=== PATIENT | male | born 1970 | race Caucasian/White ===

== ENCOUNTER 2017-12-08 06:32 | Day surgery (SDC) | END 2017-12-08 16:17 | disposition home or self-care (01) ==

== ENCOUNTER 2018-08-10 05:38 | Inpatient (IN) | payer OTHER ==
[2018-08-09 10:00] VITALS: BMI 37.9
[2018-08-10] VITALS (28 sets, daily range): BP systolic 102–206; BP diastolic 53–95; PULSE 75–116; RESP 16–44; Ht 176.5 cm; Wt 119.0 kg
[~2018-08-10] VITALS: Ht 176.5 cm; Wt 119.0 kg
[2018-08-10] MEDS ORDERED: CEFAZOLIN 2 GM/50 ML (PMX) 50 ML IVPB ONE (06:00)
[2018-08-10] MEDS ORDERED: DEXAMETHASONE 4 MG/ML 5 ML INJ ONE (07:00)
[2018-08-10] MEDS ORDERED: ONDANSETRON 4 MG INJ ONE (07:00)
[2018-08-10] MEDS ORDERED: CEFAZOLIN 1 GM INJ ONE (07:00)
[2018-08-10] MEDS ORDERED: DESFLURANE 15 MIN ONE (07:00)
[2018-08-10] MEDS ORDERED: IOHEXOL 300MG/ML 30 ML BTL ONE (07:08)
[2018-08-10] MEDS ORDERED: IPRATROPIUM (NEB) 0.5 MG/2.5 ML AMP HHN ONE (07:30)
[2018-08-10] MEDS ORDERED: LEVALBUTEROL (NEB) 1.25 MG/0.5 ML AMP HHN ONE (07:30)
[2018-08-10] MEDS ORDERED: LEVALBUTEROL (NEB) 1.25 MG/0.5 ML AMP ONE (07:30)
--- NOTE | 2018-08-10 07:32 | PREAC ---
Date/Time of Note Date/Time of Note DATE: 08/10/18 TIME: :31 Anesthesia Eval and Record Evaluation Time Pre-Procedure Interview DATE: 08/10/18 TIME: 07:31 Age 47 Sex male NPO: 8 hrs Preoperative diagnosis kidney stones Planned procedure ESWOL Past Medical History Past Medical History: Includes ( ) Pulm: Other (chronic, non-productive, afibrile cough on ABx with clear CXR) GI: Obesity Surgery & Anesthesia Issues Hx of difficult intubation Meds Anticoagulation: No Beta Siva within 24 hr: No Reason Beta Siva not given: Pt. not on B-Siva No Active Prescriptions or Reported Meds Current Medications Levalbuterol (Xopenex Neb) 1.25 mg ONCE ONCE HHN ; Start 08/10/18 at 07:30; Stop 08/10/18 at 07:31; Status UNV Ipratropium Datil (Atrovent 0.02% (Neb)) 0.5 mg ONCE ONCE HHN ; Start 08/10/18 at 07:30; Stop 08/10/18 at 07:31; Status UNV Meds reviewed: Yes Allergies Coded Allergies: No Known Allergy (Unverified , 08/10/18) Allergies Reviewed: Yes Labs/Studies Labs Reviewed: Reviewed by anesthesiologist test: Negative Studies: ECG, CXR ( ) Pre-procedure Exam Airway: Adequate mouth opening, Adequate thyromental dist Mallampati: Mallampati III Teeth: Normal Lung: Normal Heart: Normal ASA Physical Status ASA physical status: 2 Emergency: None Planned Anesthetic General/MAC: ETT Planned Pain Management Parenteral pain med Pre-operative Attestations Prior to commencing anesthesia and surgery, the patient was re-evaluated, there was verification of: *The patient's identity *The results of appropriate recent lab work and preoperative vital signs *The above evaluation not changing prior to induction *Anesthetic plan, risk benefits, alternative and complications discussed with patient/family; questions answered; patient/family understands, accepts and wishes to proceed. TUNDE RAMSEY MD Aug 10, 2018 07:32
[2018-08-10] MEDS ORDERED: ROCURONIUM 50 MG INJ ONE (07:52)
[2018-08-10] MEDS ORDERED: FENTAnyl 50 MCG/ML VIAL ONE (07:52)
[2018-08-10] MEDS ORDERED: MIDAZOLAM 1 MG/ML 2 ML INJ ONE (07:52)
[2018-08-10] MEDS ORDERED: LIDOCAINE 2% (SDV) 5 ML INJ ONE (07:52)
[2018-08-10] MEDS ORDERED: SUCCINYLCHOLINE CHLORIDE 100 MG/5 ML SYG IV ONE (07:52)
[2018-08-10] MEDS ORDERED: PROPOFOL 20 ML ONE (07:52)
[2018-08-10] MEDS ORDERED: METOCLOPRAMIDE 10 MG INJ ONE (07:52)
[2018-08-10] MEDS ORDERED: MEPERIDINE 25 MG INJ IV PRN (08:00)
[2018-08-10] MEDS ORDERED: LEVALBUTEROL (NEB) 1.25 MG/0.5 ML AMP HHN PRN ×2 (08:00→14:30)
[2018-08-10] MEDS ORDERED: FENTAnyl 50 MCG/ML VIAL IV PRN ×2 (08:00)
[2018-08-10] MEDS ORDERED: ONDANSETRON 4 MG INJ IV PRN ×2 (08:00→14:00)
[2018-08-10] MEDS ORDERED: HYDROmorphONE 1 MG/5 ML IV SYRINGE IV PRN ×3 (08:00)
[2018-08-10] MEDS ORDERED: KETOROLAC 30 MG INJ IV PRN (08:00)
[2018-08-10] MEDS ORDERED: DIPHENHYDRAMINE 50 MG INJ IV PRN (08:00)
[2018-08-10] MEDS ORDERED: IPRATROPIUM (NEB) 0.5 MG/2.5 ML AMP HHN PRN (08:00)
--- NOTE | 2018-08-10 10:10 | HP ---
DATE OF ADMISSION: 08/10/2018 CHIEF COMPLAINT: Left kidney stone. HISTORY OF PRESENT ILLNESS: This is a 47-year-old male with history of left-sided kidney stone. The patient has been under observation for his kidney stone. Over time, it appears that the stone has i ncreased in size. In February 2018, a CT scan revealed a 13 mm lower pole renal stone with a small 3 to 4 mm calyceal stones. In December 2017, a 1 cm stone near the left ureteropelvic junction area was identified with mild left hydronephrosis. The patient has had intermittent left-sided flank pain, wh ich is moderately bothersome to him. The patient also has history of bladder neck contracture and bladder neck elevation. In 2009, he und erwent a transurethral incision of prostate. In 11/2017, the patient underwent transurethral resecti on of bladder neck contracture with Kenalog injection. His workup has revealed a small 27 gram prost ate. In March 2018, cystoscopy revealed a small stone adhered to the mucosa of the prostate at the bladder neck, which was dislodged. However, no bladder neck contractures were seen. The patient re ports he has slow urinary stream with frequency every 2 to 3 hours and nocturia x3. The patient's chest x-ray from this morning reveals no evidence of active acute disease PAST MEDICAL HISTORY: Elevated cholesterol, kidney stones, BPH, chronic cough: The patient has had a chronic cough for the past month. He reports his cough is not productive and it is dry. PAST SURGICAL HISTORY: Transurethral incision of prostate and transurethral resection of bladder nec k contracture with Kenalog injection. FAMILY HISTORY: Father; diabetes, CVA. Mother; diabetes. SOCIAL HISTORY: The patient does not drink alcohol, does not smoke. ALLERGIES: NO KNOWN DRUG ALLERGIES. MEDICATIONS: None. However, the patient did take azithromycin about a week ago for his cough. REVIEW OF SYSTEMS: CONSTITUTIONAL: No fevers, no chills, no change in appetite, weight gain or weight loss. HEENT: No loss of hearing, no ear or sinus pain. No rhinorrhea, nosebleed or sore throat. CARDIOVASCULAR: No chest pain or shortness of breath or heart palpitations. RESPIRATORY: The patient has chronic cough as described above. No wheezing, no hemoptysis. GASTROINTESTINAL: No abdominal pain, no cramping, no nausea. No hematochezia or hematemesis. The p atient has had intermittent left-sided flank pain. MUSCULOSKELETAL: No bone pain. No change in strength or joint pain. INTEGUMENTARY: No skin rash or lesions. NEUROLOGICAL: No dizziness, no headaches, no numbness. PSYCHIATRIC: No suicidal ideation. No depression. HEMATOLOGIC/LYMPHATIC: No known bleeding problems. No easy bruising. No lymph node enlargement. PHYSICAL EXAMINATION: CONSTITUTIONAL: The patient appears to be in no acute distress. GASTROINTESTINAL: Abdomen soft, normal bowel sounds, nondistended, nontender. Hernia exam none note d. Liver and spleen normal. GENITOURINARY: Kidneys, no CVA tenderness. Scrotum no lesions, no edema, no erythema, mass, rash, o r cysts. Epididymis symmetric, normal size, normal texture, nontender. Urethral meatus normal in si ze and location. Testes descended bilaterally, nontender. EXTREMITIES: No edema. ASSESSMENT: 1. Left-sided kidney stones. Intermittent left flank pain. 2. History of bladder neck contracture status post treatment. 3. History of urinary frequency, urgency, slow urinary stream and lower urinary tract symptoms. RECOMMENDATIONS: I have spoken with the patient in detail about natural history, grading, natural hi story and biology of kidney stones. We have discussed various treatment options. Among these option s, he understands his choices include, but not limited to continued observation, treatment of stone w ith shock lithotripsy, ureteroscopy, laser lithotripsy, percutaneous nephrostolithotomy, nephrolithot alisha and pyelolithotomy. Among these options, I have recommended and patient has elected to undergo a left extracorporeal shock wave lithotripsy, left ureteroscopy, laser lithotripsy, cystoscopy, left r etrograde pyelogram, and placement of left ureteral stent. This procedure has been explained to the patient in detail. Risks and benefits have been discussed. His questions have been answered. He un derstands that risks include, but not limited to infection, bleeding, damage to adjacent structures, heart problems, lung problems, possibility of need for further surgery, DVT, PE, ME, CVA, nonresoluti on of symptoms, recurrence of symptoms, need for other treatments, need for other surgeries, bowel in jury, bladder injury, ureteral injury, vascular injury, inability to treat all the stone in one setti ng, ureteral stricture, need for prolonged stent placement, complication of his lungs due to chronic cough, need to return for further stone treatment. All the patient's questions have been answered, n o guarantees given. He also understands that since the stent will be placed, he would have to return to my office for stent removal. All of his questions have been answered, no guarantees given. The patient would like to proceed. Dictated By: ALY RODRIGUEZ MD SR/NTS Conf#: [id number] DID#: [id number] CC: ALY RODRIGUEZ MD;*EndCC*
[2018-08-10] MEDS ORDERED: RACEPINEPHRINE 2.25%(NEB) 0.5 ML AMP ONE (10:23)
[2018-08-10] MEDS ORDERED: IPRATROPIUM (NEB) 0.5 MG/2.5 ML AMP HHN STA (10:26)
--- NOTE | 2018-08-10 10:33 | PAC ---
Date/Time of Note Date/Time of Note DATE: 08/10/18 TIME: 10:33 Post-Anesthesia Notes Post-Anesthesia Note Last documented vital signs Vital Signs Date Temp Pulse Resp B/P (MAP) Pulse Ox O2 O2 Flow FiO2 Time Delivery Rate 08/10/18 89 18 97 21 07:40 08/10/18 98.3 119/82 07:33 (94) Activity: WNL Respiratory function: WNL Cardiovascular function: WNL Mental status: Baseline Pain reasonably controlled: Yes Hydration appropriate: Yes Nausea/Vomiting absent: Yes TUNDE RAMSEY MD Aug 10, 2018 10:33
[2018-08-10] MEDS ORDERED: ALBUTEROL 0.083% (NEB) 2.5 MG/3 ML AMP ONE (10:34)
--- NOTE | 2018-08-10 10:42 | PN ---
Date/Time of Note Date/Time of Note DATE: 08/10/18 TIME: 10:37 Assessment/Plan VTE Prophylaxis SCD applied (from Nsg): Yes Pharmacological prophylaxis: NA/contraindicated Pharm contraindication: bleeding Lines/Catheters IV Catheter Type (from Nrsg): Saline Lock Central line still needed: No Urinary Cath still in place: No Assessment/Plan Hospital Course Pt underwent Left Extracorporeal shock wave lithotripsy, L ureteroscopy laser lithotripsy, ureteral stent placement Post op he was extubated but has been wheezing, required O2 and bronchodilator treatment I spoke with anesthesiologist and hospitalist service. Pt to be admitted to hospitalist service for observation, treatment of bronchospasm and wheezing Assessment/Plan Post op Wheezing Bronchospasm PLAN admit for treatment of wheezing to medicine service Cipro 500 BID for post op prophylaxis Subjective 24 Hr Interval Summary Free Text/Dictation pt had had wheezing post op Exam/Review of Systems Exam Vitals Vital Signs Date Temp Pulse Resp B/P (MAP) Pulse Ox O2 O2 Flow FiO2 Time Delivery Rate 08/10/18 89 18 97 21 07:40 08/10/18 98.3 119/82 07:33 (94) Intake and Output 08/09/18 08/09/18 08/10/18 1515:00 23:00 07:00 IntakeIntake Total 0 ml BalanceBalance 0 ml Respiratory: wheezing Gastrointestinal: soft, nl liver, spleen, non-tender Extremities: normal pulses Neurological: 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 II-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 intact Medications Medication Current Medications Hydromorphone HCl (Dilaudid) 0.2 mg PACU PRN IV MILD PAIN 1-3; Start 08/10/18 at 08:00; Stop 08/10/18 at 17:00 Hydromorphone HCl (Dilaudid) 0.4 mg PACU PRN IV MOD PAIN 4-6; Start 08/10/18 at 08:00; Stop 08/10/18 at 17:00 Hydromorphone HCl (Dilaudid) 0.6 mg PACU PRN IV SEVERE PAIN 7-10; Start 08/10/18 at 08:00; Stop 08/10/18 at 17:00 Fentanyl (Sublimaze) 25 mcg PACU ORDER PRN IV MILD PAIN 1-3; Start 08/10/18 at 08:00; Stop 08/10/18 at 17:00 Fentanyl (Sublimaze) 50 mcg PACU ORDER PRN IV MOD PAIN 4-6; Start 08/10/18 at 08:00; Stop 08/10/18 at 17:00 Ketorolac Tromethamine (Toradol) 30 mg PACU ORDER PRN IV FOR PAIN AFTER IV NARCOTIC MED; Start 08/10/18 at 08:00; Stop 08/10/18 at 17:00 Ondansetron HCl (Zofran Inj) 4 mg PACU ORDER PRN IV NAUSEA/VOMITING; Start 08/10/18 at 08:00; Stop 08/10/18 at 17:00 Levalbuterol (Xopenex Neb) 1.25 mg PACU ORDER PRN HHN .WHEEZING; Start 08/10/18 at 08:00; Stop 08/10/18 at 17:00 Ipratropium [place] (Atrovent 0.02% (Neb)) 0.5 mg PACU ORDER PRN HHN .WHEEZING; Start 08/10/18 at 08:00; Stop 08/10/18 at 17:00 Meperidine HCl (Demerol) 25 mg PACU ORDER PRN IV .RIGORS; Start 08/10/18 at 08:00; Stop 08/10/18 at 17:00 Diphenhydramine HCl (Benadryl) 25 mg PACU ORDER PRN IV .PRURITUS; Start 08/10/18 at 08:00; Stop 08/10/18 at 17:00 Influenza Virus Vaccine Quadrival (Fluzone) 0.5 ml ONCE ONCE IM* ; Start 08/11/18 at 10:00; Stop 08/11/18 at 10:01 ALY RODRIGUEZ Aug 10, 2018 10:42
--- NOTE | 2018-08-10 10:44 | SIPON ---
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
[2018-08-10] MEDS ORDERED: EPINEPHrine 0.1 MG/ML SYG ONE (11:10)
[2018-08-10] MEDS ORDERED: HYDROCODONE/APAP (5/325) TAB PO PRN (14:00)
[2018-08-10] MEDS ORDERED: NACL 0.9% 3 ML SYG IV SCH (14:00)
[2018-08-10] MEDS ORDERED: ALBUTEROL/IPRATROPIUM (NEB) 3 ML AMP HHN PRN (14:00)
[2018-08-10] MEDS ORDERED: DOCUSATE SODIUM 100 MG CAP PO PRN (14:00)
[2018-08-10] MEDS ORDERED: morphine 2 MG INJ IV PRN (14:00)
--- NOTE | 2018-08-10 14:02 | HP ---
Date/Time of Note Date/Time of Note DATE: 08/10/18 TIME: 13:55 Assessment/Plan VTE Prophylaxis Risk score (from Ns)>0 risk: 4 SCD applied (from Ns): Yes Pharmacological prophylaxis: NA/contraindicated Pharm contraindication: surgical contra Lines/Catheters IV [facility] Peripheral IV Urinary Cath still in place: No Assessment/Plan Hospital Course SUBJECTIVE: Lying in bed, having mild increased work of breathing, appears anxious, feeling hungry and wants to eat. On 4-5 L oxygen via nasal cannula. OBJECTIVE: Vital signs-see below PHYSICAL EXAM: Constitutional: Obese male, lying in bed comfortably. Psych: nl mood/affect, no complaints Head: atraumatic, normocephalic Eyes: nl conjunctiva, nl sclera ENMT: mucosa pink and moist, nl external ears & nose Neck: non-tender, supple Respiratory: +Rales/Rhonchi. Diminished base. +DOES Cardiovascular: nl pulses, regular rate and rhythm Gastrointestinal: non-tender, soft, bowel sounds active in all 4 quadrants. Musculoskeletal/extremities: nl extremities to inspection, motor strength equal bilaterally, no focal deficit. Normal pulses,no cyanosis, no edema. Neurological: Alert oriented 3,nl speech, nl strength Skin: nl turgor ASSESSMENT/PLAN: 47-year-old obese male with a history of sleep apnea, possible recent URI, brought in for lithotripsy/stent placement for left kidney stone. 1. Left kidney stone, status post lithotripsy/stent placement 08/10/2018 -Postoperative management per urology team -Start diet as tolerated 2. Postoperative acute hypoxemic respiratory failure, multifactorial with MAX exacerbation, upper respiratory infection/possible bronchitis,developing PNA, Pulmonary edema vs other. -Currently stable on nasal cannula. Obtain CT chest with contrast to rule out possibility of postoperative PE. -We will give a dose of Lasix x1 (+Rales) and obtain 2D echocardiogram to rule out CHF -[id number] bronchodilators, nocturnal CPAP,HOB 30degree and above,Incentive spirometer,supplemental o2 to keep spo2>92%. -Start Levaquin in light of possible URI/acute bronchitis based on his symptomatology of coughX1 week duration. -Follow-up x-rays and consider pulmonary evaluation if indicated, otherwise patient can follow-up with manager poker after discharge for PFTs/sleep apnea workup. 3. Obesity with a BMI 38.2 per -Weight reduction advised. We will also obtain A1c and lipid panel. 4. Possible URI/Acute bronchitis -Pneumonia cannot be excluded at this time. -We will treat with antibiotics, cough medications, PRN bronchodilators. -Incentive spirometry DVT prophylaxis: SCDs. PUD prophylaxis: Pepcid CODE STATUS: Full code Diet: Clear, advance to regular as tolerated. Rest of the management depend on hospital course. Approximately 60 m spent on this history and physical. Patient was seen in collaboration with . HPI/ROS Admit Date/Time Admit Date/Time Aug 10, 2018 at 10:40 Hx of Present Illness Is a 47-year-old obese male with a past medical history of sleep apnea who was previously told to be on CPAP machine long time ago which he is currently not on, was brought in left ureteroscopy/laser lithotripsy secondary to left renal stone measuring 2 cm. Patient apparently has been having cough for a week prior to admission for which he did not try any [id number] medication or PCP check. Patient underwent lithotripsy with stent placement on 08/10/2018. Post operatively, patient was noted with bronchospasm and respiratory distress after extubation requiring oxygen/breathing treatments in PACU, leading to overnight observation and hospitalist consultation requested for respiratory management. At my encounter with the patient, he is on 5 L oxygen via nasal cannula, appears anxious, having slight difficulty breathing w/ nonproductive cough. He denied chest pain, palpitation, nausea, vomiting, dizziness, loss of consciousness, numbness, tingling, fever, chills or other constitutional symptoms. He admitted to some headache. Currently no labs for review. Vital signs temperature 98.0, pulse rate 102, respiratory rate 28, blood pressure 132/69, oxygen saturation 95% on 4 L nasal cannula. A chest x-ray done in the PACU showed mild cardiomegaly with out congestive heart failure or pneumonia. ROS A 12 point review of system was assessed and is negative other than what is mentioned in the HPI PMH/Family/Social Past Medical History See HPI Medications Current Medications Influenza Virus Vaccine Quadrival (Fluzone) 0.5 ml ONCE ONCE IM* ; Start 08/11/18 at 10:00; Stop 08/11/18 at 10:01 Coded Allergies: No Known Allergy (Unverified , 08/10/18) Past Surgical History See HPI Social History Denied history of alcohol, smoking or illicit drug use. Smoking Status: Never smoker Exam/Review of Systems Vital Signs Vitals Vital Signs Date Temp Pulse Resp B/P (MAP) Pulse Ox O2 O2 Flow FiO2 Time Delivery Rate 08/10/18 94 13:43 08/10/18 28 132/69 95 Nasal 4.0 12:49 (90) Cannula 08/10/18 98.0 10:51 08/10/18 21 07:40 KARTHIK MOORE NP Aug 10, 2018 14:02
[2018-08-10] MEDS: LEVOFLOXACIN 500MG/D5W (PMX) 100 ML IVPB SCH (14:17)
[2018-08-10] MEDS ORDERED: FUROSEMIDE 40 MG INJ IV ONE (14:30)
[2018-08-10] MEDS ORDERED: GUAIFENESIN/DM 5ML CUP PO PRN (14:30)
[2018-08-10] MEDS ORDERED: SOD CHLORIDE 0.9% 100 ML ONE (14:34)
[2018-08-10] MEDS ORDERED: IOHEXOL 300MG/ML 150 ML BTL ONE (14:34)
--- NOTE | 2018-08-10 14:40 | OPR ---
DATE OF OPERATION: 08/10/2018 PREOPERATIVE DIAGNOSIS: Left kidney stone (2 cm). POSTOPERATIVE DIAGNOSIS: Left kidney stone (2 cm). OPERATIONS PERFORMED: 1. Left extracorporeal shock lithotripsy. 2. Left ureteroscopy, laser lithotripsy. 3. Cystoscopy, left retrograde pyelogram. 4. Placement of left ureteral stent. INDICATIONS FOR PROCEDURE: The patient has a history of enlarging left kidney stone. He is schedule d to undergo the above said procedure. The procedure has been explained to the patient in detail. R isks and benefits have been discussed. All of his questions have been answered, no guarantees given. He would like to proceed. FINDINGS: The stone which appeared to be about 1.[address] and ultrasound was larger on fluoroscopy . It was possibly about 2.2 cm. This stone was treated with shock lithotripsy. Ureteroscopy reveal ed that although the stone had fragmented, there were still significant fragments which required furt her treatment; therefore laser lithotripsy and stone basket extraction was performed. The stone was treated down to less than 2 mm fragments. At the end of the procedure, 6-Egyptian 26 cm stent was plac ed for the patient. PROCEDURE IN DETAIL: The patient was brought to the operating room, underwent general endotracheal t ube anesthesia. He was placed in the supine position. Attention was paid to performing the shock li thotripsy. The patient was secured properly on the shock lithotripsy table for left-sided treatment. Water was placed underneath the flank area. Next, the fluoroscopy revealed the location of the sto ne. The stone appeared to be in the lower pole of the kidney. It appeared to be possibly 2.2 cm in size. The shock head was brought into the field. The shock head was then focused along the superior aspect of the stone in the AP and oblique angles. At this point, shockwave lithotripsy was started. Initial setting was at level 4. At each 90 shocks, the level was increased by half level until a 7 .5 level had been reached. Initially, the more superior aspect of the stone was treated. After abou t 750 shocks, the mid portion of the stone was treated. The stone was treated at 90 shocks per minut e, then increased to 120 shocks per minute. As this was done, the stone became less radiopaque and b ecame more radiolucent. The lower portion of the stone was also treated. Overall 2400 shocks were g iven to the stone. The stone was treated along its entire length. As this was done, the stone becam e more radiolucent and also appeared more spread out. No further major radiopacities were seen at th is point. It appeared that the stone was properly treated with shock lithotripsy at 2400 shock, maxi mum level was 7.5. At this point, the shock head was removed. The patient was repositioned on the table and was placed in lithotomy position. Abdomen, perineum and genitalia were prepped and draped in usual sterile fash ion. A 22-Egyptian cystoscope was placed transurethrally. Urethra appeared to be normal. Bladder neck was wide open and noncontracted. Bladder was carefully examined. No stones were identified in the bladd er. There was mild pinkish urine within the bladder. No bladder tumors were seen. A 2+ trabeculati on within the bladder was identified. An open-ended catheter was then placed into the left ureteral orifice. Retrograde pyelogram was performed which revealed no evidence of filling defects within the left ureter. Left ureter appeared to be normal. The kidney appeared to be dilated. The kidney sukhwinder eared to contain moderate hydronephrosis. There was no evidence of extravasation. A Glidewire was t hen passed under direct vision and fluoroscopy up into the upper pole of the kidney. Next, a dual-demetrius men catheter was advanced over the Glidewire through the cystoscope. The dual lumen catheter was adv anced through the left ureteral orifice up to the mid portion of the ureter. This allowed gentle dil ation of the ureter from 6-Egyptian to 12-Egyptian. A second wire was then advanced under fluoroscopy an d direct vision into the kidney. At this point, both of this wires were kept in place. However, the cystoscope and the dual-lumen catheter were discontinued. One wire was used as safety while the other was used to advance inner core of the ureteral access she ath. This was 13 to 15 mm access sheath core; however this did not pass beyond the intramural portio n of ureter; therefore this was discontinued. The inner core of an 11/13 Egyptian access sheath was pl aced over the wire. This was able to be advanced into the distal ureter, but no further. It appeare d that it was not possible to place a ureteral access sheath due to the narrowed aspect of the ureter . A 9.5 Egyptian flexible digital ureteroscope was then advanced over the working wire. The safety wire was kept intact. The ureteroscope easily advanced up the ureter all the way up into the upper pole o f the kidney under fluoroscopy and direct vision. The working wire was discontinued. The safety wir e was kept in place. At this point, renoscopy was performed. Upper pole, middle pole and lower pole calyces were individu ally intubated with ureteroscope to examine all the calyces. No stones were identified in the upper pole; however there were some stone fragments that had migrated into the middle pole. The majority o f the stones burden was in the lower pole. The lower pole contained 2 to 3 separate calyces, which c ontained the stone fragments. Some small fragments which were between 2 to 3 mm were identified. Ho wever, there were multiple fragments which were between 5 to 8 mm on ureteroscopy. The 270-micron fiber was then placed through the working channel of the ureteroscope. The fiber was brought onto the stones in the middle pole calyx. The stones were then treated with laser lithotrips y. The stones were initially treated at the setting of 1 kilojoule and 10 Hz. The stone was fragmen david to smaller less than 3 mm fragments. Next, the energy was decreased to 0.5 kilojoules with the f requency increased to 20 Hz which was the maximum frequency for the machine. The stone was then eh david to dust and tiny fragments using this method. About 10 minutes to 15 minutes of laser lithotrips y was performed until the stones that were in the middle calyx had decreased down to about 1 mm fragm ents. Attention was then paid to the lower pole fragments. These fragments were also treated in similar fa shion. The range of laser treatment was between 0.8 kilojoules and 8 Hz to 1 kilojoule and 10 Hz as well as the 1.5 kilojoules and 12 Hz. Once the stone had been degraded down to a size that could be popcorn or dusted, then the frequency was increased to 20 and joules were decreased down to 0.5. The lower pole stones were treated in this fashion. At this point, renoscopy was reperformed. A 3 mm s tone fragment was identified in the renal pelvis. This was grasped with tipless basket and brought o ut of the ureter. This was grasped and sent to pathology as a left renal stone for chemical analysis . The dual lumen catheter was then used to advance a secondary wire again. A secondary wire was the n used to advance the ureteroscope back up into the kidney. Renoscopy was then reperformed. Another 3 to 4 mm fragments were identified. These fragments were f urther treated with laser lithotripsy. At this point, the entire kidney was reexamined and no furthe r major fragments were seen within the kidney. Of note after the ESWL, fragments as large as 6 to 8 mm had been seen; however after the laser lithotripsy, no further such fragments were seen. Fluorosc opy throughout the procedure also confirmed that the fragments that had been created with the shock l ithotripsy had been further degraded down to nonopaque sizes. At the end of the procedure, fluorosco py revealed no further stone fragments in the kidney. Furthermore renoscopy revealed no further caitlyn r fragments in the kidney. The lower pole dusted fragments were irrigated out of the lower pole. Th e ureteroscope was then brought down the entire length of the ureter. No other abnormalities were se en other than slight stenosis at the ureteropelvic junction area. The ureteroscope was then complete ly discontinued. The existing wire was then backloaded onto the cystoscope. A dual lumen catheter was advanced. Retr ograde pyelogram was performed to opacify the kidney. No extravasation was identified. Next, a dual -lumen catheter was discontinued. A 6-Egyptian 26 cm stent was then advanced over the wire under direc t vision and fluoroscopy. The tip of the stent was brought into the renal pelvis. As the stent was advanced, the wire was retracted until a complete coil was obtained in the kidney. At this point, th e stent was further advanced and then the wire was discontinued. A complete coil was also obtained i n the bladder. Fluoroscopy and direct vision confirmed correct placement of the left ureteral stent. There was no string on the stent. The patient was then placed back in supine position. He was fidel kened, extubated and taken to recovery room in stable condition. POSTOPERATIVE CONDITION: Stable. COMPLICATIONS: None. BLOOD LOSS: Minimal. BLOOD ADMINISTERED: None. SPECIMENS SENT TO LABORATORY: Left kidney stone for chemical analysis. DRAINS AND PACKS: A 6-Egyptian 26 cm stent. Dictated By: ALY RODRIGUEZ MD SR/GOOD Conf#: [id number] DID#: [id number]
[2018-08-10] MEDS: LEVALBUTEROL (NEB) 1.25 MG/0.5 ML AMP HHN SCH ×2 (14:45→20:50)
[2018-08-10] MEDS: IPRATROPIUM (NEB) 0.5 MG/2.5 ML AMP HHN PRN ×2 (14:45→20:50)
[2018-08-10] MEDS ORDERED: ALBUTEROL/IPRATROPIUM (NEB) 3 ML AMP HHN SCH (17:00)
[2018-08-10] MEDS ORDERED: IOHEXOL 100 ML ONE (17:31)
[2018-08-10] MEDS ORDERED: ALPRAZOLAM 0.5 MG TAB PO PRN (19:00)
[2018-08-10] MEDS: FAMOTIDINE 20 MG TAB PO SCH (20:27)
[2018-08-10] MEDS: ACETAMINOPHEN 325 MG TAB PO PRN (20:27)
[2018-08-11] VITALS (12 sets, daily range): BP systolic 114–147; BP diastolic 68–83; PULSE 87–99; RESP 16–18
[2018-08-11] MEDS: LEVALBUTEROL (NEB) 1.25 MG/0.5 ML AMP HHN SCH ×6 (01:43→20:54)
[2018-08-11] MEDS: IPRATROPIUM (NEB) 0.5 MG/2.5 ML AMP HHN PRN ×6 (01:44→20:54)
[2018-08-11] MEDS: FAMOTIDINE 20 MG TAB PO SCH ×2 (08:39→20:45)
--- NOTE | 2018-08-11 08:50 | PN ---
Date/Time of Note Date/Time of Note DATE: 08/11/18 TIME: 08:46 Assessment/Plan VTE Prophylaxis Risk score (from Ns)>0 risk: 4 SCD applied (from Ns): Yes Pharmacological prophylaxis: NA/contraindicated Pharm contraindication: surgical contra Lines/Catheters IV C[facility]ter Type [facility]from [facility]): Peripheral IV Urinary Cath still in place: No Assessment/Plan Hospital Course SUBJECTIVE: Sitting up in chair, anxious. On 5 L nasal cannula. No wheezing OBJECTIVE: Vital signs-see below PHYSICAL EXAM: Constitutional: Obese male, lying in bed comfortably. Psych: nl mood/affect, no complaints Head: atraumatic, normocephalic Eyes: nl conjunctiva, nl sclera ENMT: mucosa pink and moist, nl external ears & nose Neck: non-tender, supple Respiratory: +Rhonchi RUL. Diminished base. +DOES Cardiovascular: nl pulses, regular rate and rhythm Gastrointestinal: non-tender, soft, bowel sounds active in all 4 quadrants. Musculoskeletal/extremities: nl extremities to inspection, motor strength equal bilaterally, no focal deficit. Normal pulses,no cyanosis, no edema. Neurological: Alert oriented 3,nl speech, nl strength Skin: nl turgor ASSESSMENT/PLAN: 47-year-old obese male with a history of sleep apnea, cough 1 week duration (not treated), brought in for lithotripsy/stent placement for left kidney stone. 1. Left kidney stone, status post lithotripsy/stent placement 08/10/2018 -Postoperative management per urology team -Start diet as tolerated 2. Postoperative acute hypoxemic respiratory failure,multi factorial with MAX exacerbation + Pneumonia vs pulmonary edema -Ruled out PE. -s/p Laisixx1 dose...volume status appears stable clinically...=>-f/u 2d echo/BNP to determine whether he needs to diuresed more. -cont. kzzowy-aud-gyvgk bronchodilators, nocturnal CPAP,HOB 30degree and above,Incentive spirometer,supplemental o2 to keep spo2>92%. -cont.Levaquin, add vancomycin -pulmonary consult, oupt PFTs/sleep apnea workup. 3. Multifocal pneumonia vs pulmonary edema -Patient had cough a week prior to surgery,now w/leukocytosis=> high threshold for developing PNA from untreated URI/Bronchitis... -TREATMENT OUTLINED IN #2. 3. Obesity with a BMI 38.2 -Weight reduction advised. -A1C/Lipid panel noted DVT prophylaxis: SCDs. PUD prophylaxis: Pepcid CODE STATUS: Full code Diet: Clear, advance to regular as tolerated. Rest of the management depend on hospital course. Approximately 60 m spent on this history and physical. Patient was seen in collaboration with . Result Diagram: 08/11/18 0515 08/11/18 0515 Results 24hrs Laboratory Tests Test 08/10/18 13:44 08/11/18 05:15 Blood Gas Specimen Source Blood arterial Arterial Blood Date Drawn 08/10/2018 2:09:25 PM Arterial Blood pH (Temp corrected) 7.359 Arterial Blood pCO2 (Temp correct) 41.2 Arterial Blood pO2 (Temp corrected) 59.6 L Arterial Blood HCO3 22.7 Arterial Blood Base Excess -2.6 Arterial Blood Oxygen Saturation 89.1 L Too Test ACCEPTAB Arterial Blood Gas Puncture Site Left Radial Arterial Blood Carboxyhemoglobin 0.4 Arterial Blood Methemoglobin 0.4 Blood Gas A-a O2 Differential 127.6 H Oxyhemoglobin Percent 88.4 L Blood Gas Temperature 37.0 Blood Gas Modality NASAL CANNULA FiO2 33.0 Blood Gas Notified Whom TM Blood Gas Notified Time 08/10/2018 2:18:04 PM White Blood Count 15.0 #H Red Blood Count 4.98 Hemoglobin 14.2 Hematocrit 42.2 Mean Corpuscular Volume 84.7 Mean Corpuscular Hemoglobin 28.5 L Mean Corpuscular Hemoglobin Concent 33.6 Red Cell Distribution Width 13.0 Platelet Count 218 Mean Platelet Volume 10.3 Immature Granulocytes % 0.500 H Neutrophils % 79.2 H Lymphocytes % 10.8 L Monocytes % 9.3 Eosinophils % 0.1 Basophils % 0.1 Nucleated Red Blood Cells % 0.0 Immature Granulocytes # 0.080 H Neutrophils # 11.9 H Lymphocytes # 1.6 Monocytes # 1.4 H Eosinophils # 0.0 Basophils # 0.0 Nucleated Red Blood Cells # 0.0 Sodium Level 140 Potassium Level 3.8 Chloride Level 103 Carbon Dioxide Level 29 Anion Gap 8 Blood Urea Nitrogen 16 Creatinine 1.15 Est Glomerular Filtrat Rate mL/min > 60 Glucose Level 128 Hemoglobin A1c 5.7 Calcium Level 9.2 Phosphorus Level 4.3 Magnesium Level 1.9 Total Bilirubin 0.5 Direct Bilirubin 0.00 Indirect Bilirubin 0.5 Aspartate Amino Transf (AST/SGOT) 37 Alanine Aminotransferase (ALT/SGPT) 62 Alkaline Phosphatase 47 Total Protein 7.1 Albumin 4.0 Globulin 3.10 Albumin/Globulin Ratio 1.29 Triglycerides Level 84 Cholesterol Level 191 LDL Cholesterol, Calculated 146 HDL Cholesterol 28 Cholesterol/HDL Ratio 6.8 Exam/Review of Systems Exam Vitals Vital Signs Date Temp Pulse Resp B/P (MAP) Pulse Ox O2 O2 Flow FiO2 Time Delivery Rate 08/11/18 89 08:04 08/11/18 18 99 Nasal 4.0 07:54 Cannula 08/11/18 98.3 125/68 07:51 (87) 08/10/18 07:40 Intake and Output 08/10/18 08/10/18 08/11/18 1414:59 22:59 06:59 IntakeIntake Total 2000 ml 300 ml 980 ml OutputOutput Total 0 ml 1300 ml 1050 ml BalanceBalance 2000 ml -1000 ml -70 ml Results Results 24hrs Laboratory Tests Test 08/10/18 13:44 08/11/18 05:15 Blood Gas Specimen Source Blood arterial Arterial Blood Date Drawn 08/10/2018 2:09:25 PM Arterial Blood pH (Temp corrected) 7.359 Arterial Blood pCO2 (Temp correct) 41.2 Arterial Blood pO2 (Temp corrected) 59.6 L Arterial Blood HCO3 22.7 Arterial Blood Base Excess -2.6 Arterial Blood Oxygen Saturation 89.1 L Too Test ACCEPTAB Arterial Blood Gas Puncture Site Left Radial Arterial Blood Carboxyhemoglobin 0.4 Arterial Blood Methemoglobin 0.4 Blood Gas A-a O2 Differential 127.6 H Oxyhemoglobin Percent 88.4 L Blood Gas Temperature 37.0 Blood Gas Modality NASAL CANNULA FiO2 33.0 Blood Gas Notified Whom TM Blood Gas Notified Time 08/10/2018 2:18:04 PM White Blood Count 15.0 #H Red Blood Count 4.98 Hemoglobin 14.2 Hematocrit 42.2 Mean Corpuscular Volume 84.7 Mean Corpuscular Hemoglobin 28.5 L Mean Corpuscular Hemoglobin Concent 33.6 Red Cell Distribution Width 13.0 Platelet Count 218 Mean Platelet Volume 10.3 Immature Granulocytes % 0.500 H Neutrophils % 79.2 H Lymphocytes % 10.8 L Monocytes % 9.3 Eosinophils % 0.1 Basophils % 0.1 Nucleated Red Blood Cells % 0.0 Immature Granulocytes # 0.080 H Neutrophils # 11.9 H Lymphocytes # 1.6 Monocytes # 1.4 H Eosinophils # 0.0 Basophils # 0.0 Nucleated Red Blood Cells # 0.0 Sodium Level 140 Potassium Level 3.8 Chloride Level 103 Carbon Dioxide Level 29 Anion Gap 8 Blood Urea Nitrogen 16 Creatinine 1.15 Est Glomerular Filtrat Rate mL/min > 60 Glucose Level 128 Hemoglobin A1c 5.7 Calcium Level 9.2 Phosphorus Level 4.3 Magnesium Level 1.9 Total Bilirubin 0.5 Direct Bilirubin 0.00 Indirect Bilirubin 0.5 Aspartate Amino Transf (AST/SGOT) 37 Alanine Aminotransferase (ALT/SGPT) 62 Alkaline Phosphatase 47 Total Protein 7.1 Albumin 4.0 Globulin 3.10 Albumin/Globulin Ratio 1.29 Triglycerides Level 84 Cholesterol Level 191 LDL Cholesterol, Calculated 146 HDL Cholesterol 28 Cholesterol/HDL Ratio 6.8 Medications Medication Current Medications Influenza Virus Vaccine Quadrival (Fluzone) 0.5 ml ONCE ONCE IM* ; Start 08/11/18 at 10:00; Stop 08/11/18 at 10:01 IV Flush (NS 3 ml) 3 ml PER PROTOCOL IV ; Start 08/10/18 at 14:00 Ondansetron HCl (Zofran Inj) 4 mg Q6H PRN IV NAUSEA/VOMITING Last administered on 08/10/18at 14:58; Admin Dose 4 MG; Start 08/10/18 at 14:00 Acetaminophen (Tylenol Tab) 650 mg Q6H PRN PO .PAIN 1-3 OR TEMP Last administered on 08/10/18at 20:27; Admin Dose 650 MG; Start 08/10/18 at 14:00 Acetaminophen/ Hydrocodone Bitart ([place] (5/325)) 1 tab Q6H PRN PO .MOD PAIN 4- 6 Last administered on 08/10/18at 14:17; Admin Dose 1 TAB; Start 08/10/18 at 14:00 Morphine Sulfate (morphine) 2 mg Q4H PRN IV .SEVERE PAIN 7-10; Start 08/10/18 at 14:00 Docusate Sodium (Colace) 100 mg Q12H PRN PO .CONSTIPATION; Start 08/10/18 at 14:00 Famotidine (Pepcid) 20 mg Q12 PO Last administered on 08/10/18at 20:27; Admin Dose 20 MG; Start 08/10/18 at 21:00 Levofloxacin/ Dextrose 100 ml @ 100 mls/hr Q24H IVPB Last administered on 08/10/18at 14:17; Admin Dose 100 MLS/HR; Start 08/10/18 at 14:00 Guaifenesin/ Dextromethorphan (Robitussin Dm Liquid Cup) 10 ml Q4H PRN PO cough; Start 08/10/18 at 14:30 Levalbuterol (Xopenex Neb) 1.25 mg Q4H RESP THERAPY HHN Last administered on 08/11/18at 07:54; Admin Dose 1.25 MG; Start 08/10/18 at 15:00 Ipratropium [place] (Atrovent 0.02% (Neb)) 0.5 mg Q4H RESP THERAPY PRN HHN SHORTNESS OF BREATH Last administered on 08/11/18at 07:54; Admin Dose 0.5 MG; Start 08/10/18 at 14:30 Levalbuterol (Xopenex Neb) 1.25 mg Q2H RESP THERAPY PRN HHN wheezing/sob; Start 08/10/18 at 14:30 Alprazolam (Xanax) 0.5 mg Q12H PRN PO ANXIETY; Start 08/10/18 at 19:00 KARTHIK MOORE NP Aug 11, 2018 08:50
[2018-08-11] MEDS ORDERED: VANCOMYCIN IV PER PHARMACY XX SCH (09:00)
[2018-08-11] MEDS ORDERED: VANCOMYCIN HCL 2 GM in SOD CHLORIDE 0.9% 500 ML IVPB ONE (11:00)
--- NOTE | 2018-08-11 13:43 | CONS ---
DATE OF ADMISSION: 08/11/2018 DATE OF CONSULTATION: TYPE OF CONSULTATION: Pulmonary. REASON FOR CONSULTATION: Shortness of breath. Thank you, Dr. Wilmer Lockhart, for this consultation. HISTORY OF PRESENT ILLNESS: This is a pleasant 47-year-old gentleman with probable obstructive sleep apnea, who underwent lithotripsy and stent placement for left renal calculi. Preoperatively, the pa osmel states he has had a 1-month history of productive cough and had taken an outpatient antibiotics without resolution. He subsequently had a preoperative chest x-ray which was apparently unremarkabl e. He underwent this procedure without complication, but postoperatively had significant hypoxemia r equiring significant supplemental O2. This morning, he is more alert, awake on nasal cannula O2. Vi vin signs: Temperature 98, pulse is 99, blood pressure 147/83, O2 saturation 94% on 4 liters. He is a nonsmoker. No prior history of recurrent respiratory infection. He was diagnosed with sleep apne a but never uses CPAP device. PAST MEDICAL HISTORY: Renal calculi. MEDICATIONS: Per chart. ALLERGIES: NONE. SOCIAL HISTORY: Nonsmoker, no alcohol, no history of drug use. FAMILY HISTORY: Noncontributory. REVIEW OF SYSTEMS: A 12-point review of systems was negative other than that mentioned above. PHYSICAL EXAMINATION: GENERAL: Moderately obese gentleman, appears comfortable at rest, in no acute distress. VITAL SIGNS: Currently afebrile, pulse is 98, blood pressure 147/83, O2 saturation 94% on 3 liters. NECK: Supple. No JVD, lymphadenopathy. CARDIAC: S1, S2. No added sounds or murmur. CHEST: Diminished air entry bilaterally. ABDOMEN: Obese, soft, nontender. No guarding, rebound. EXTREMITIES: No cyanosis, clubbing or edema. NEUROLOGIC: Grossly intact. No focal deficits. DIAGNOSTIC DATA: CT chest was performed, which shows patchy nodular infiltrates with possible pulmon lico edema, no pulmonary embolus. Chest x-ray last night showed mild cardiomegaly. IMPRESSION AND PLAN: Post-lithotripsy with stent placement hypoxemia likely secondary to combination of hypoventilation and underlying obstructive sleep apnea. I have encouraged the patient to continu e with incentive spirometry, decrease supplemental O2 as tolerated, encourage out of bed and ambulate and to have outpatient pulmonary function testing and sleep study performed. Dictated By: JERED CAREY/GOOD Conf#: [id number] DID#: [id number] CC: MILIND VANG MD;*[facility]*
--- NOTE | 2018-08-11 15:39 | RADRPT ---
Echocardiogram Report Patient Name: MICHAEL REICHPatient ID: [id number] : 1970 (47y 11m)Study Date: 08/10/2018 2:16:59 PM Gender: MAccession #: [id number] Tech: Ethan Duncan [facility] Location: [address] Ref.Physician: KARTHIK MOORE Height(Cm): BSA: Weight(Kg): Quality: AdequateAccount #: Procedures: Echocardiographic Report: Transthoracic echocardiogram with complete 2D, M-Mode, and doppler examination. Indications: Shortness of breath. Measurements: 2D/M Mode Doppler Measurement Value Normal Range Measurement Value Normal Range LVIDd 2D 5.4 [ 4.2 - 5.8 ] cm AV Peak Sachin 1.3 [ 100.0 - 170.0 ] cm/sec LVIDs 2D 3.9 [ 2.5 - 4.0 ] cm AV Peak PG 7.0 [ 2.0 - 9.0 ] mmHg LVPWd 2D 0.7 [ 0.6 - 1.0 ] cm LVOT Peak Sachin 0.9 [ 70.0 - 110.0 ] cm/sec IVSd 2D 0.9 [ 0.6 - 1.0 ] cm LVOT Peak PG 3.0 [ 2.0 - 6.0 ] mmHg AoR Diam 2D 3.0 [ 2.6 - 3.4 ] cm MV E Peak Sachin 0.8 [ 60.0 - 130.0 ] cm/sec EDV 2D 140.0 [ 62.0 - 150.0 ] ml MV A Peak Sachin 0.8 [ 100.0 - 120.0 ] cm/sec ESV 2D 67.1 [ 21.0 - 61.0 ] ml MV E/A 1.0 [ 0.8 - 1.5 ] ratio EF 2D 52.1 [ 52.0 - 72.0 ] percent MV Decel Time 165 [ 104 - 258 ] msec LA Dimen 2D 3.0 [ 3.0 - 4.0 ] cm Lat E` Sachin 0.1 [ 10.0 - 15.0 ] cm/sec Lateral E/E` 8.0 [ 1.0 - 2.0 ] ratio Med E` Sachin 0.1 cm/sec MV E/A 1.0 [ 0.8 - 1.5 ] ratio TR Peak Sachin 2.1 [ 100.0 - 280.0 ] cm/sec TR Peak PG 18.0 mmHg RVSP 26.0 [ 10.0 - 36.0 ] mmHg Findings: Left Ventricle: Overall, normal left ventricular systolic function. Not all segments visualized. Normal left ventricular wall thickness. Ejection fraction is visually estimated at 55 %. Tissue Doppler/Mitral Doppler indices are within normal limits. Right Ventricle: Normal right ventricular size. Normal right ventricular systolic function. Left Atrium: The left atrium is normal in size. Right Atrium: The right atrium is normal in size. Mitral Valve: Normal appearance and function of the mitral valve with trace physiologic regurgitation. Trace mitral regurgitation. Aortic Valve: Normal appearance of the aortic valve. No significant aortic stenosis or insufficiency. Tricuspid Valve: Normal appearance of the tricuspid valve. Unable to obtain RVSP due to minimal presence of tricuspid regurgitation. There is trace tricuspid regurgitation. Pulmonic Valve: Pulmonic valve not well visualized. Pericardium: Normal pericardium with no significant pericardial effusion. Aorta: Normal aortic root. IVC: Normal size and normal respiratory collapse consistent with normal right atrial pressure. Conclusions: Technically difficult study with poor endocardial visualization. Overall, normal left ventricular systolic function. Not all segments visualized. Normal left ventricular wall thickness. Ejection fraction is visually estimated at 55 %. Tissue Doppler/Mitral Doppler indices are within normal limits. No significant valvular stenosis or regurgitation seen. Unable to obtain RVSP due to minimal presence of tricuspid regurgitation. Normal size and normal respiratory collapse consistent with normal right atrial pressure. Electronically Signed By: Wilbur Antoine 2018-08-11 15:38:57 PST
[2018-08-11] MEDS: ACETAMINOPHEN 325 MG TAB PO PRN ×2 (16:17→23:22)
[2018-08-11] MEDS: LEVOFLOXACIN 500MG/D5W (PMX) 100 ML IVPB SCH (19:11)
[2018-08-11] MEDS: VANCOMYCIN HCL 1.25 GM in SOD CHLORIDE 0.9% 250 ML IVPB SCH (22:54)
[2018-08-12] VITALS (7 sets, daily range): BP systolic 132–144; BP diastolic 82–88; PULSE 85–98; RESP 18–19
[2018-08-12] MEDS: LEVALBUTEROL (NEB) 1.25 MG/0.5 ML AMP HHN SCH ×4 (01:51→13:04)
[2018-08-12] MEDS: ACETAMINOPHEN 325 MG TAB PO PRN (06:36)
[2018-08-12] MEDS: FAMOTIDINE 20 MG TAB PO SCH (08:29)
--- NOTE | 2018-08-12 09:09 | PDOCDIS ---
Discharge Instructions CONDITION [id number] Patient Condition: [id number] Stable HOME CARE INSTRUCTIONS: [id number] Diet Instructions: [id number] Reduced Calorie FOLLOW UP/APPOINTMENTS Follow-up Plan Follow-up with Dr. Lockhart in 2 weeks in his clinic: [id number] [place] [address] Office Follow-up with in his clinic in 2 weeks. [address] [facility] [address] [address] Office KARTHIK MOORE NP Aug 12, 2018 09:09
[2018-08-12] MEDS ORDERED: CIPR500T4 PO (09:15)
[2018-08-12] MEDS ORDERED: ALPR0.5T PO (09:15)
[2018-08-12] MEDS ORDERED: AZIT500T2 PO (09:15)
[2018-08-12] MEDS ORDERED: GUAI120S26 PO (09:15)
[2018-08-12] MEDS ORDERED: AZIT500T3 PO (09:19)
--- NOTE | 2018-08-12 09:25 | DS ---
Date/Time of Note Date/Time of Note DATE: 08/12/18 TIME: 09:23 Discharge Summary Admission/Discharge Info Admit Date/Time Aug 11, 2018 at 12:46 Discharge Date/Time Discharge Diagnosis 1. Left kidney stone, status post lithotripsy/stent placement 08/10/2018 2. Postoperative acute hypoxemic respiratory failure,multi factorial with MAX exacerbation + Pneumonia vs pulmonary edema 3. Bronchitis with possible Multifocal pneumonia.stable. 3. Obesity with a BMI 38.2 Patient Condition: Stable Consults , pulmonary Dr. Lockhart, urology Procedures 08/10/2018. Operation performed OPERATIONS PERFORMED: 1. Left extracorporeal shock lithotripsy. 2. Left ureteroscopy, laser lithotripsy. 3. Cystoscopy, left retrograde pyelogram. 4. Placement of left ureteral stent. 08/10/2018. CTA chest. IMPRESSION: Limited by motion artifact and poor contrast opacification of the pulmonary arteries. No large or central pulmonary emboli. Patchy bilateral ground-glass and nodular opacities may represent pulmonary edema or infection. 08/10/2018. Chest x-ray IMPRESSION: 1. Interstitial opacities in the perihilar regions and the lower lungs are increased from the prior exam and may represent pulmonary edema or multifocal infection. 08/10/2089. Chest x-ray IMPRESSION: Mild cardiomegaly without congestive heart failure or pneumonia. Hx of Present Illness Is a 47-year-old obese male with a past medical history of sleep apnea who was previously told to be on CPAP machine long time ago which he is currently not on, was brought in left ureteroscopy/laser lithotripsy secondary to left renal stone measuring 2 cm. Patient apparently has been having cough for a week prior to admission for which he did not try any [id number] medication or PCP check. Patient underwent lithotripsy with stent placement on 08/10/2018. Post operatively, patient was noted with bronchospasm and respiratory distress after extubation requiring oxygen/breathing treatments in PACU, leading to overnight observation and hospitalist consultation requested for respiratory management. At my encounter with the patient, he is on 5 L oxygen via nasal cannula, appears anxious, having slight difficulty breathing w/ nonproductive cough. He denied chest pain, palpitation, nausea, vomiting, dizziness, loss of consciousness, numbness, tingling, fever, chills or other constitutional symptoms. He admitted to some headache. Currently no labs for review. Vital signs temperature 98.0, pulse rate 102, respiratory rate 28, blood pressure 132/69, oxygen saturation 95% on 4 L nasal cannula. A chest x-ray done in the PACU showed mild cardiomegaly with out congestive heart failure or pneumonia. Hospital Course 47-year-old obese male with a history of sleep apnea, cough 1 week duration (not treated), brought in for lithotripsy/stent placement for left kidney stone. Post operatively, patient was noted with bronchospasm and respiratory distress after extubation requiring oxygen/breathing treatments in PACU, leading to overnight observation and hospitalist consultation requested for respiratory management. Patient's ABG was noted for severe hypoxemia requiring supplemental oxygen. Most likely etiology is obstructive sleep apnea exacerbation with possible upper respiratory infection with developing pneumonia postoperatively. He was treated with appropriate antimicrobials, bronchodilators, cough medications and supplemental oxygen titrated for SPO2. Patient was also evaluated by pu lmonologist. His symptoms resolved. He did not require any further oxygen. There was no further leukocytosis. There was no fevers. He has been tolerating diet and activities well. From a postoperative standpoint, he is stable for discharge on Cipro prophylaxis with follow-up. Patient was also given a course of Zithromax to continue on discharge. He is feeling back to his baseline and eager to be discharged. Patient's hospitalization was also notable for anxiety disorders and hyperventilation for which he did well on low-dose Xanax. Approximately 60 m spent on coordinating the discharge on this patient. Patient and family was instructed to follow-up with sausage stuffer for outpatient pulmonary function test and sleep apnea studies which he verbalized understanding. Patient was seen in collaboration with Dr. Magdaleno. Home Meds Active Scripts Azithromycin* (Zithromax*) 500 Mg Tablet, 500 MG PO DAILY for 5 Days, #5 TAB Prov:MOORE,KARTHIK V. ULTRASOUND TECHNOLOGIST SONOGRAPHER 08/12/18 Othktefways-R-Zpcepsqazd Hb* (Guaifenesin* DM Syrup) 120 Ml Syrup, 10 ML PO Q4H PRN for cough, #100 ML Prov:MOORE,KARTHIK V. ULTRASOUND TECHNOLOGIST SONOGRAPHER 08/12/18 Ciprofloxacin Hcl* (Ciprofloxacin Hcl*) 500 Mg Tablet, 500 MG PO BID, #14 TAB Prov:MOORE,KARTHIK V. ULTRASOUND TECHNOLOGIST SONOGRAPHER 08/12/18 Follow-up Plan Follow-up with Dr. Lockhart in 2 weeks in his clinic: [id number] [place] [address] Office Follow-up with in his clinic in 2 weeks. [address] [facility] [address] [place] [address] Office Primary Care Provider Not On Staff Doctor Pending Labs Laboratory Tests Test 08/12/18 05:07 White Blood Count 10.8 10^3/ul (4.8-10.8) Red Blood Count 4.86 10^6/ul (4.70-6.10) Hemoglobin 14.0 g/dl (14.0-18.0) Hematocrit 42.3 % (42.0-52.0) Mean Corpuscular Volume 87.0 fl (82.0-101.0) Mean Corpuscular Hemoglobin 28.8 pg (29.0-33.0) Mean Corpuscular Hemoglobin Concent 33.1 g/dl (32.0-37.0) Red Cell Distribution Width 13.2 % (11.5-14.5) Platelet Count 218 10^3/UL (140-415) Mean Platelet Volume 10.4 fl (7.4-10.4) Immature Granulocytes % 0.500 % (0.001-0.429) Neutrophils % 70.4 % (39.0-77.0) Lymphocytes % 17.7 % (15.0-51.0) Monocytes % 9.6 % (0.0-11.0) Eosinophils % 1.3 % (0.0-7.0) Basophils % 0.5 % (0.0-2.0) Nucleated Red Blood Cells % 0.0 /100WBC (0.0-0.0) Immature Granulocytes # 0.050 10^3/ul (0.0-0.031) Neutrophils # 7.6 10^3/ul (1.6-7.5) Lymphocytes # 1.9 10^3/ul (0.8-2.9) Monocytes # 1.0 10^3/ul (0.3-0.9) Eosinophils # 0.1 10^3/ul (0.0-0.5) Basophils # 0.1 10^3/ul (0.0-0.1) Nucleated Red Blood Cells # 0.0 10^3/ul (0.0-0.0) Sodium Level 141 mmol/L (135-144) Potassium Level 4.0 mmol/L (3.5-5.1) Chloride Level 104 mmol/L (97-110) Carbon Dioxide Level 28 mmol/L (21-31) Anion Gap 9 (5-13) Blood Urea Nitrogen 13 mg/dl (7-20) Creatinine 1.08 mg/dl (0.61-1.24) Est Glomerular Filtrat Rate mL/min > 60 mL/min (>60) Glucose Level 117 mg/dl (70-220) Calcium Level 9.1 mg/dl (8.4-10.2) KARTHIK MOORE NP Aug 12, 2018 09:25
[2018-08-12] MEDS: VANCOMYCIN HCL 1.25 GM in SOD CHLORIDE 0.9% 250 ML IVPB SCH (10:27)
--- NOTE | 2018-08-12 15:02 | CONS ---
Consult Date/Type/Reason Admit Date/Time Aug 11, 2018 at 12:46 Initial Consult Date Type of Consult Pulmonary Date/Time of Note DATE: 08/12/18 TIME: 15:00 Subjective Remains stable, breathing better. Objective Vital Signs Date Temp Pulse Resp B/P (MAP) Pulse Ox O2 O2 Flow FiO2 Time Delivery Rate 08/12/18 84 18 97 21 13:04 08/12/18 98.8 132/82 11:27 (99) 08/11/18 Nasal 4.0 07:54 Cannula Intake and Output 08/11/18 08/11/18 08/12/18 1515:00 23:00 07:00 IntakeIntake Total 1000 ml 250 ml OutputOutput Total 1000 ml BalanceBalance 0 ml 250 ml Exam PHYSICAL EXAMINATION: GENERAL: Moderately obese gentleman, appears comfortable at rest, in no acute distress. VITAL SIGNS: NECK: Supple. No JVD, lymphadenopathy. CARDIAC: S1, S2. No added sounds or murmur. CHEST: Diminished air entry bilaterally. ABDOMEN: Obese, soft, nontender. No guarding, rebound. EXTREMITIES: No cyanosis, clubbing or edema. NEUROLOGIC: Grossly intact. No focal deficits. Vent Setting Fraction of Inspired Oxygen pe: 21 Results/Medications Result Diagram: 08/12/18 0507 08/12/18 0507 Results 24 hrs Laboratory Tests Test 08/12/18 05:07 White Blood Count 10.8 # Red Blood Count 4.86 Hemoglobin 14.0 Hematocrit 42.3 Mean Corpuscular Volume 87.0 Mean Corpuscular Hemoglobin 28.8 L Mean Corpuscular Hemoglobin Concent 33.1 Red Cell Distribution Width 13.2 Platelet Count 218 Mean Platelet Volume 10.4 Immature Granulocytes % 0.500 H Neutrophils % 70.4 Lymphocytes % 17.7 Monocytes % 9.6 Eosinophils % 1.3 Basophils % 0.5 Nucleated Red Blood Cells % 0.0 Immature Granulocytes # 0.050 H Neutrophils # 7.6 H Lymphocytes # 1.9 Monocytes # 1.0 H Eosinophils # 0.1 Basophils # 0.1 Nucleated Red Blood Cells # 0.0 Sodium Level 141 Potassium Level 4.0 Chloride Level 104 Carbon Dioxide Level 28 Anion Gap 9 Blood Urea Nitrogen 13 Creatinine 1.08 Est Glomerular Filtrat Rate mL/min > 60 Glucose Level 117 Calcium Level 9.1 Medications Current Medications IV Flush (NS 3 ml) 3 ml PER PROTOCOL IV ; Start 08/10/18 at 14:00 Ondansetron HCl (Zofran Inj) 4 mg Q6H PRN IV NAUSEA/VOMITING Last administered on 08/10/18 14:58; Admin Dose 4 MG; Start 08/10/18 at 14:00 Acetaminophen (Tylenol Tab) 650 mg Q6H PRN PO .PAIN 1-3 OR TEMP Last administered on 08/12/18 06:36; Admin Dose 650 MG; Start 08/10/18 at 14:00 Acetaminophen/ Hydrocodone Bitart ([place] (5/325)) 1 tab Q6H PRN PO .MOD PAIN 4- 6 Last administered on 08/10/18 14:17; Admin Dose 1 TAB; Start 08/10/18 at 14:00 Morphine Sulfate (morphine) 2 mg Q4H PRN IV .SEVERE PAIN 7-10; Start 08/10/18 at 14:00 Docusate Sodium (Colace) 100 mg Q12H PRN PO .CONSTIPATION; Start 08/10/18 at 14:00 Famotidine (Pepcid) 20 mg Q12 PO Last administered on 08/12/18 08:29; Admin Dose 20 MG; Start 08/10/18 at 21:00 Levofloxacin/ Dextrose 100 ml @ 100 mls/hr Q24H IVPB Last administered on 08/11/18 19:11; Admin Dose 100 MLS/HR; Start 08/10/18 at 14:00 Guaifenesin/ Dextromethorphan (Robitussin Dm Liquid Cup) 10 ml Q4H PRN PO cough Last administered on 08/11/18 23:28; Admin Dose 10 ML; Start 08/10/18 at 14:30 Levalbuterol (Xopenex Neb) 1.25 mg Q4H RESP THERAPY HHN Last administered on 08/12/18 13:04; Admin Dose 1.25 MG; Start 08/10/18 at 15:00 Ipratropium Sears (Atrovent 0.02% (Neb)) 0.5 mg Q4H RESP THERAPY PRN HHN SHORTNESS OF BREATH Last administered on 08/11/18 20:54; Admin Dose 0.5 MG; Start 08/10/18 at 14:30 Levalbuterol (Xopenex Neb) 1.25 mg Q2H RESP THERAPY PRN HHN wheezing/sob; Start 08/10/18 at 14:30 Alprazolam (Xanax) 0.5 mg Q12H PRN PO ANXIETY; Start 08/10/18 at 19:00 Vancomycin HCl (Vanco Iv Per Pharmacy) VANCOMYCIN PER PHARMACY PER PROTOCOL XX ; Start 08/11/18 at 09:00 Vancomycin HCl 1.25 gm/Sodium Chloride 250 ml @ 83.333 mls/ hr Q12H IVPB Last administered on 08/12/18at 10:27; Admin Dose 83.333 MLS/HR; Start 08/11/18 at 23:00 Assessment/Plan Hospital Course (Demo Recall) IMPRESSION AND PLAN: Post-lithotripsy with stent placement hypoxemia likely secondary to combination of hypoventilation and underlying obstructive sleep apnea. dc planning ok with me. follow up in office. JERED REVELES MD, FCCP Aug 12, 2018 15:02
== END 2018-08-12 14:00 | disposition home or self-care (01) | DRG 981 ==
LOC: SDS 05:38 → REC 10:40 → SDS 10:40 → 6WM 13:17 → OBSVTOIN 08-11 12:46
PROVIDERS: ADMIT Internal Medicine; ATTEND Internal Medicine
PROC: 0T778DZ Dilation of Left Ureter with Intraluminal Device, Via Natural or Artificial Opening Endoscopic (ICD-10-PCS; 2018-08-10)
PROC: BT1FYZZ Fluoroscopy of Left Kidney, Ureter and Bladder using Other Contrast (ICD-10-PCS; 2018-08-10)
PROC: 5A09357 Assistance with Respiratory Ventilation, Less than 24 Consecutive Hours, Continuous Positive Airway Pressure (ICD-10-PCS; principal; 2018-08-10 07:30)
PROC: 0TC18ZZ Extirpation of Matter from Left Kidney, Via Natural or Artificial Opening Endoscopic (ICD-10-PCS; 2018-08-10 07:30)
DX: J95.821 Acute postprocedural respiratory failure (principal); J18.9 Pneumonia, unspecified organism; N13.2 Hydronephrosis with renal and ureteral calculous obstruction; Y83.8 Other surgical procedures as the cause of abnormal reaction of the patient, or of later complication, without mention of misadventure at the time of the procedure; Y92.530 Ambulatory surgery center as the place of occurrence of the external cause; R06.2 Wheezing; G47.33 Obstructive sleep apnea (adult) (pediatric); J20.9 Acute bronchitis, unspecified; E78.5 Hyperlipidemia, unspecified; N40.1 Benign prostatic hyperplasia with lower urinary tract symptoms; R35.0 Frequency of micturition; R39.15 Urgency of urination; R39.12 Poor urinary stream; E66.9 Obesity, unspecified; Z68.38 Body mass index [BMI] 38.0-38.9, adult; Z71.3 Dietary counseling and surveillance
CPT/HCPCS: 36600; 71045; 71275; 74430; 80048; 80053; 80061; 82803; 83036; 83735; 83880; 84100; 85025; 88300; 90686; 93306; 94640; 94664; G0378; C2617; J0171; J0690; J1100; J1885; J1940; J1956; J2250; J2270; J2405; J2765; J3010; J3370; J7040; J7050; Q9967